=== PATIENT | female | born 1995 | race Caucasian/White ===

== ENCOUNTER 2021-11-14 12:43 | Emergency (ER) | payer SELFPAY ==
[2021-11-14] MEDS ORDERED: Benzocaine 20% Topical Spray UD MUCMEM ONE (13:27)
[2021-11-14] MEDS ORDERED: Lidocaine 2% Viscous Solution 15 ML UD PO ONE (13:27)
[2021-11-14] MEDS ORDERED: Lidocaine 1% 5 ML VIAL INJECT ONE (13:27)
== END 2021-11-14 13:58 | disposition home or self-care (01) ==
LOC: MW.ED 12:43
DX: K04.7 Periapical abscess without sinus (principal); Z79.899 Other long term (current) drug therapy; Z86.16 Personal history of COVID-19
CPT/HCPCS: 41800; 99282; A9270

== ENCOUNTER 2021-11-14 22:02 | Observation (INO) | payer SELFPAY ==
[2021-11-14] MEDS ORDERED: Sodium Chloride 0.9% 1,000 ML IV ONE (23:03)
[2021-11-14] MEDS ORDERED: Acetaminophen 500 MG Tab PO ONE (23:10)
[2021-11-15 01:25] LABS: CARBON DIOXIDE,CO2 22.2 mmol/L (21.0-32.0); POTASSIUM,K 3.3 mmol/L (3.5-5.1)
[2021-11-15] MEDS ORDERED: Iopamidol 755 MG/ML 500 ML Multipack Bottle IVPUSH ONE (01:53)
[2021-11-15] MEDS ORDERED: Ketorolac 30 MG/ML SDV IVPUSH ONE (02:36)
[2021-11-15] MEDS ORDERED: Ampicillin/Sulbactam Na 3 GM in Sodium Chloride 0.9% 100 ML IV ONE (03:26)
[2021-11-15] MEDS ORDERED: Lidocaine 2% Viscous Solution 15 ML UD PO ONE (03:58)
[2021-11-15] MEDS ORDERED: Morphine 4 MG/ML VIAL IVPUSH ONE (03:59)
[2021-11-15] MEDS ORDERED: Chlorhexidine Gluconate 0.12% Oral Rinse 473 ML Bottle PO PRN (06:33)
[2021-11-15] MEDS ORDERED: Albuterol/Ipratropium 3.0-0.5 MG/3 ML Neb Soln NEB PRN (06:34)
[2021-11-15] MEDS ORDERED: Ondansetron 4 MG/2 ML SDV IVPUSH PRN (06:35)
[2021-11-15] MEDS: Morphine 2 MG/ML SYRINGE IVPUSH PRN ×4 (06:53→19:37)
[2021-11-15] MEDS: Lactated Ringers 1,000 ML IV SCH ×2 (06:53→16:54)
[2021-11-15] MEDS: Ampicillin/Sulbactam Na 3 GM in Sodium Chloride 0.9% 100 ML IV SCH ×3 (09:24→21:59)
[2021-11-15] MEDS: Pantoprazole 40 MG in Sodium Chloride 0.9% 10 ML IVPUSH SCH (09:24)
[2021-11-15] MEDS: traZODone 50 MG Tab PO SCH (21:58)
[2021-11-16] MEDS: Morphine 2 MG/ML SYRINGE IVPUSH PRN ×5 (00:08→22:19)
[2021-11-16] MEDS: Lactated Ringers 1,000 ML IV SCH (01:30)
[2021-11-16] MEDS: Ampicillin/Sulbactam Na 3 GM in Sodium Chloride 0.9% 100 ML IV SCH ×4 (04:14→21:35)
[2021-11-16 06:17] LABS: CARBON DIOXIDE,CO2 23.9 mmol/L (21.0-32.0); POTASSIUM,K 3.4 mmol/L (3.5-5.1)
[2021-11-16] MEDS: VENLAFAXINE 37.5 MG PO SCH (08:20)
[2021-11-16] MEDS: Pantoprazole 40 MG in Sodium Chloride 0.9% 10 ML IVPUSH SCH (08:21)
[2021-11-16] MEDS ORDERED: Potassium Chloride 20 MEQ Tab.ER PO ONE (08:53)
[2021-11-16] MEDS ORDERED: VENLAFAXINE 37.5 MG PO SCH ×2 (09:00)
[2021-11-16] MEDS: traZODone 50 MG Tab PO SCH (21:34)
[2021-11-17] MEDS ORDERED: oxyCODONE 5 MG Tab PO PRN (00:38)
[2021-11-17] MEDS: Ampicillin/Sulbactam Na 3 GM in Sodium Chloride 0.9% 100 ML IV SCH ×2 (04:03→10:03)
[2021-11-17 06:13] LABS: CARBON DIOXIDE,CO2 24.6 mmol/L (21.0-32.0); POTASSIUM,K 3.8 mmol/L (3.5-5.1)
[2021-11-17] MEDS: VENLAFAXINE 37.5 MG PO SCH (10:01)
[2021-11-17] MEDS: Pantoprazole 40 MG in Sodium Chloride 0.9% 10 ML IVPUSH SCH (10:02)
== END 2021-11-17 11:25 | disposition home or self-care (01) ==
LOC: MW.ED 22:02 → MW.MS 11-15 04:43
PROVIDERS: ADMIT Student in an Organized Health Care Education/Training Program; ATTEND Student in an Organized Health Care Education/Training Program
DX: K04.7 Periapical abscess without sinus (principal); L03.211 Cellulitis of face; J32.0 Chronic maxillary sinusitis; F32.A Depression, unspecified; F41.9 Anxiety disorder, unspecified; J45.909 Unspecified asthma, uncomplicated; R56.9 Unspecified convulsions; Z86.16 Personal history of COVID-19; Z79.891 Long term (current) use of opiate analgesic; Z79.899 Other long term (current) drug therapy; Z79.2 Long term (current) use of antibiotics
CPT/HCPCS: 36415; 41800; 70487; 80048; 80053; 83605; 83735; 84100; 85025; 87040; 96361; 96365; 96366; 96375; 96376; 99284; A9270; C9113; G0378; J0295; J1885; J2270; J3490; J7030; J7120; Q9967